=== PATIENT | female | born 1985 | race Caucasian/White ===

== ENCOUNTER → 2017-04-30 23:48 | Observation (INO) ==
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
== END | disposition left against medical advice (07) ==
LOC: 1NENULAB
PROVIDERS: ADMIT Advanced Practice Midwife; ATTEND Advanced Practice Midwife

== ENCOUNTER 2022-05-08 11:12 | Inpatient (IN) ==
[2022-05-08 08:51] LABS: Basophils % 0.3 %; Eosinophils # 0.2 K/mcL (0.0-0.6); Eosinophils % 2.1 %; Hematocrit 32.7 % (35.3-44.9); Hemoglobin 10.4 g/dL (11.5-15.4); Immature Granulocytes % 0.2 % (0-4); Lymphocytes # 1.6 K/mcL (0.6-4.6); Mean Corpuscular HGB Conc 31.8 g/dL (31.6-35.5); Mean Corpuscular Hemoglobin 26.5 pg (28.0-33.3); Mean Corpuscular Volume 83.4 fL (83.0-100.0); Mean Platelet Volume 11.3 fL (9.4-12.4); Monocytes # 0.6 K/mcL (0.0-1.3); Monocytes % 5.7 %; Neutrophils # 7.7 K/mcL (1.6-8.9); Platelet Count 264 K/mcL (140-400); Red Blood Count 3.92 M/mcL (3.82-4.97); Red Cell Distribution Width 13.4 % (11.5-14.5); Segmented Neutrophils % 75.7 %; White Blood Count 10.2 K/mcL (4.3-11.1)
[2022-05-08 09:14] LABS: Alanine Aminotransferase 6 Units/L (7-52); Aspartate Amino Transferase 9 Units/L (13-39); BUN/Creatinine Ratio 9 (6-26); Blood Urea Nitrogen 6 mg/dL (6-20); Lactate Dehydrogenase 152 Units/L (140-271)
[2022-05-08 09:57] LABS: Bilirubin,Urine Negative (Negative); Blood,Urine Negative (Negative); Clarity,Urine Clear (Clear); Color,Urine Light-Yellow (Yellow); Glucose,Urine (UA) Normal (Normal); Ketones,Urine Negative (Negative); Leukocyte Esterase,Urine Trace (Negative); Mucus,Urine Few per lpf (None-Few); Nitrite,Urine Negative (Negative); PH,Urine 6.5 pH Units (5.0-8.0); Protein,Urine Negative (Neg-Trace); RBC,Urine 0-3 per hpf (0-3); Specific Gravity,Urine 1.015 (1.010-1.025); Squamous Epithelial Cell,Urine Few per hpf (None-Few); Urobilinogen,Urine Normal (Normal); WBC,Urine 0-3 per hpf (0-3)
[2022-05-08 10:31] LABS: Protein/Creatinine Ratio,Urine 0.17 mg/mg (0.00-0.20)
[~2022-05-08 11:12] MED LIST: Ringers Solution, Lactated 1,000 ML IVC ONE; Ringers Solution, Lactated 1,000 ML IVC SCH; Ringers Solution, Lactated 1,000 ML ONE
[2022-05-08] MEDS ORDERED: EPHEDrine 50 MG/ML VIAL IVP PRN (11:16)
[2022-05-08] MEDS ORDERED: Oxytocin 30 UNIT/503 ML BAG IVC ONE (11:20)
[2022-05-08] MEDS ORDERED: *HR* FentaNYL (PF) 100 MCG/2 ML VIAL ONE (11:26)
[2022-05-08] MEDS ORDERED: *HR* FentaNYL (PF) 100 MCG/2 ML VIAL IVP ONE (11:27)
[2022-05-08] MEDS ORDERED: Epidural Premix (fent/bupiv) 110 ML EP SCH (11:30)
[2022-05-08] MEDS ORDERED: Ondansetron ODT 4 MG TAB.RAPDIS SL PRN (12:05)
[2022-05-08] MEDS ORDERED: Lanolin 7 G OINT...G. TP PRN (12:05)
[2022-05-08] MEDS ORDERED: Oxytocin 30 UNIT/503 ML BAG IVC SCH (12:05)
[2022-05-08] MEDS ORDERED: Rho Immune Globulin 1,500 UNIT SYRINGE IM PRN (12:05)
[2022-05-08] MEDS ORDERED: OXYTOCIN/RINGERS LACTATE 10 UNIT/166.6 ML BAG IVC ONE (12:05)
[2022-05-08] MEDS ORDERED: Measles/Mumps/Rubella Vacc 0.5 ML VIAL SQ PRN (12:05)
[2022-05-08] MEDS ORDERED: Benzocaine/Menthol 56 GM AEROSOL SPRAY TP PRN (12:05)
[2022-05-08] MEDS: Acetaminophen 325 MG TABLET PO SCH ×2 (12:30→19:02)
[2022-05-08 13:53] LABS: Amphetamine Screen,Urine Negative ng/mL (Cutoff=1000); Barbiturate Screen,Urine Negative ng/mL (Cutoff=200); Benzodiazepines Screen,Urine Negative ng/mL (Cutoff=200); Cannabinoid Screen,Urine Negative ng/mL (Cutoff = 50); Cocaine Screen,Urine Negative ng/mL (Cutoff= 300); Opiate Screen,Urine Positive ng/mL (Cutoff=300); Phencyclidine Screen,Urine Negative ng/mL (Cutoff=25)
[2022-05-08] MEDS ORDERED: Calcium Gluconate 1,000 MG/10 ML VIAL IVP PRN (14:08)
[2022-05-08] MEDS ORDERED: Magnesium Sulf 20 gm/SW 500mL 6 GM/150 ML BAG IV ONE (14:10)
[2022-05-08] MEDS: Magnesium Sulf 20 gm/SW 500mL 20 GM/500 ML IV.SOLN IVC SCH ×2 (14:52→20:40)
[2022-05-08] MEDS ORDERED: Ringers Solution, Lactated 1,000 ML ONE (15:32)
[2022-05-08] MEDS: Ringers Solution, Lactated 1,000 ML IVC SCH (15:39)
[2022-05-08] MEDS: Ibuprofen 600 MG TABLET PO SCH ×2 (15:43→23:25)
[2022-05-09] MEDS: Magnesium Sulf 20 gm/SW 500mL 20 GM/500 ML IV.SOLN IVC SCH (05:46)
[2022-05-09] MEDS: Acetaminophen 325 MG TABLET PO SCH ×4 (08:24→20:57)
[2022-05-09] MEDS: Prenatal Vit/FA 1 EACH TABLET PO SCH (08:25)
[2022-05-09] MEDS: Ibuprofen 600 MG TABLET PO SCH ×3 (08:25→20:57)
[2022-05-09 08:28] LABS: Basophils % 0.2 %; Eosinophils # 0.4 K/mcL (0.0-0.6); Eosinophils % 4.1 %; Hematocrit 34.1 % (35.3-44.9); Hemoglobin 10.8 g/dL (11.5-15.4); Immature Granulocytes % 0.2 % (0-4); Lymphocytes # 2.2 K/mcL (0.6-4.6); Lymphocytes % 22.9 %; Mean Corpuscular HGB Conc 31.7 g/dL (31.6-35.5); Mean Corpuscular Hemoglobin 26.2 pg (28.0-33.3); Mean Corpuscular Volume 82.8 fL (83.0-100.0); Monocytes # 0.6 K/mcL (0.0-1.3); Monocytes % 5.7 %; Neutrophils # 6.5 K/mcL (1.6-8.9); Platelet Count 301 K/mcL (140-400); Red Blood Count 4.12 M/mcL (3.82-4.97); Red Cell Distribution Width 13.5 % (11.5-14.5); Segmented Neutrophils % 66.9 %; White Blood Count 9.7 K/mcL (4.3-11.1)
[2022-05-09 08:47] LABS: Alanine Aminotransferase 7 Units/L (7-52); Aspartate Amino Transferase 12 Units/L (13-39); BUN/Creatinine Ratio 9 (6-26); Blood Urea Nitrogen 6 mg/dL (6-20); Lactate Dehydrogenase 219 Units/L (140-271); Uric Acid 5.5 mg/dL (2.3-7.6)
[2022-05-09] MEDS ORDERED: Calcium Gluconate 1,000 MG/10 ML VIAL ONE (10:19)
[2022-05-09] MEDS: Ringers Solution, Lactated 1,000 ML IVC SCH (14:28)
[2022-05-10] MEDS: Ibuprofen 600 MG TABLET PO SCH (06:14)
[2022-05-10] MEDS: Acetaminophen 325 MG TABLET PO SCH (06:14)
[2022-05-10 06:55] VITALS: PULSE 60
[2022-05-10 07:22] VITALS: BP 111/70; TEMP 97.8; O2SAT 98
[2022-05-10] MEDS: Prenatal Vit/FA 1 EACH TABLET PO SCH (09:46)
== END 2022-05-10 12:36 | disposition home or self-care (01) | DRG 560 ==
LOC: 1NENULAB → 1NENUOBS 18:58
PROVIDERS: ADMIT Obstetrics & Gynecology; ATTEND Obstetrics & Gynecology